=== PATIENT | female | born 1960 | race Caucasian/White ===

== ENCOUNTER 2018-12-29 08:30 | Inpatient (IN) | payer OTHER ==
[~2018-12-29] VITALS: Ht 154.9 cm; Wt 73.9 kg
[2019-01-31] MEDS ORDERED: LOSARTAN-HCTZ1 EACH PO (15:58)
[2019-01-31] MEDS ORDERED: JANUMET 50-5001 EACH PO (15:59)
[2019-01-31] MEDS ORDERED: FENOFIBRATE120 MG PO (15:59)
== END 2019-02-04 14:30 | DRG 470 ==
LOC: ADM 08:30 → EDSTATUS 01-31 15:00 → ADM 01-31 15:00 → SURH 02-02 05:45 → O/R 02-02 05:45 → SURH 02-02 07:00 → O/R 02-02 15:46 → SURH 02-02 16:21
PROVIDERS: ADMIT Orthopaedic Surgery
PROC: 0SRC0J9 Replacement of Right Knee Joint with Synthetic Substitute, Cemented, Open Approach (ICD-10-PCS; principal; 2019-02-02 07:00)
DX: M17.11 Unilateral primary osteoarthritis, right knee (principal); I10 Essential (primary) hypertension; E11.9 Type 2 diabetes mellitus without complications; Z79.4 Long term (current) use of insulin